=== PATIENT | female | born 1995 | race Asian ===

== ENCOUNTER 2024-06-16 23:40 | Emergency (ER) | payer BC ==
[~2024-06-16] VITALS: Ht 160 cm; Wt 54.4 kg
[2024-06-17] MEDS ORDERED: ONDANSETRON HCL/PF 4 MG/2 ML VIAL ONE (01:24)
[2024-06-17] MEDS ORDERED: DEXTROSE 50%-WATER 50 ML DISP.SYRIN ONE (01:25)
[2024-06-17] MEDS: ONDANSETRON HCL/PF 4 MG/2 ML VIAL IV ONE (01:42)
[2024-06-17] MEDS: DEXTROSE 50%-WATER 50 ML DISP.SYRIN IVP ONE (01:43)
[2024-06-17 02:08] LABS: BASOPHILS % (AUTO) 0.1 % (0.0-2.0); EOSINOPHILS # (AUTO) 0.2 K/uL (0.0-0.7); EOSINOPHILS % (AUTO) 1.9 % (0.0-6.0); HEMATOCRIT 49 % (33-45); HEMOGLOBIN 15.8 g/dL (11.5-14.8); LYMPHOCYTES # (AUTO) 1.8 K/uL (0.8-4.8); LYMPHOCYTES % (AUTO) 20.8 % (20.0-44.0); MEAN CORPUSCULAR HEMOGLOBIN 30 PG (26.0-33.0); MEAN CORPUSCULAR HGB CONC 32 g/dl (31.0-36.0); MEAN CORPUSCULAR VOLUME 91 fL (82-100); MONOCYTES # (AUTO) 0.6 K/uL (0.1-1.30); MONOCYTES % (AUTO) 7.3 % (2.0-12.0); NEUTROPHILS # (AUTO) 6.1 K/uL (1.8-8.9); NEUTROPHILS % (AUTO) 69.9 % (43.0-81.0); PLATELET COUNT (AUTO) 245 K/uL (150-450); RED BLOOD CELL COUNT(AUTO) 5.37 MIL/uL (4.0-5.2); RED CELL DISTRIBUTION WIDTH 13.9 % (11.5-15.0); WHITE BLOOD COUNT (AUTO) 8.7 K/uL (4.3-11.0)
[2024-06-17 02:14] LABS: CALCIUM, SERUM 9.4 mg/dL (8.5-10.1); CREATININE 0.7 mg/dL (0.6-1.3); POTASSIUM 5.8 mmol/L (3.5-5.1)
[2024-06-17] MEDS ORDERED: FUROSEMIDE 40 MG/4 ML VIAL ONE (02:30)
[2024-06-17] MEDS ORDERED: ALBUTEROL FS 2.5 MG/0.5 ML VIAL.NEB ONE (02:40)
[2024-06-17] MEDS: FUROSEMIDE 40 MG/4 ML VIAL IV ONE (02:41)
[2024-06-17 02:46] VITALS: O2SAT 100
[2024-06-17] MEDS: ALBUTEROL FS 2.5 MG/0.5 ML VIAL.NEB NEB ONE (02:46)
[2024-06-17 02:56] VITALS: O2SAT 100
[2024-06-17] MEDS: IV NS 0.9% 1,000 ML BAG IV ONE (03:16)
[2024-06-17 05:19] LABS: CALCIUM, SERUM 8.3 mg/dL (8.5-10.1); CREATININE 0.9 mg/dL (0.6-1.3); POTASSIUM 3.3 mmol/L (3.5-5.1)
[2024-06-17] MEDS ORDERED: ONDA4TAB5 PO (05:25)
[2024-06-17] MEDS ORDERED: MAG HYDROX/AL HYDROX/SIMETH 30 ML UDC ONE (05:32)
[2024-06-17] MEDS: MAG HYDROX/AL HYDROX/SIMETH 30 ML UDC PO ONE (05:38)
[2024-06-17 05:47] VITALS: BP 105/61; TEMP 98; O2SAT 97
== END 2024-06-17 05:47 | disposition home or self-care (01) ==
LOC: ER 23:44
DX: R11.2 Nausea with vomiting, unspecified (principal); T50.995A Adverse effect of other drugs, medicaments and biological substances, initial encounter; E16.2 Hypoglycemia, unspecified; R63.0 Anorexia; E87.5 Hyperkalemia; Z68.21 Body mass index [BMI] 21.0-21.9, adult; E87.20 Acidosis, unspecified; Y92.89 Other specified places as the place of occurrence of the external cause
CPT/HCPCS: 99285; 96374; 96375; 96361; 93005; 85025; 80048 ×2; 36415; 82962 ×4; 94640; J1940; J2405; J7030